=== PATIENT | female | born 1995 | race Two or more races ===

== ENCOUNTER 2023-09-21 01:17 | Emergency (ER) | payer OTHER ==
[~2023-09-21] VITALS: Ht 170.2 cm; Wt 64.6 kg
[2023-09-21 01:27] VITALS: BP 122/77; PULSE 67; RESP 16; O2SAT 100
== END 2023-09-21 05:36 | disposition left against medical advice (07) ==
LOC: ER 01:17
DX: R51.9 Headache, unspecified (principal); R11.0 Nausea; H53.8 Other visual disturbances; Z53.21 Procedure and treatment not carried out due to patient leaving prior to being seen by health care provider